=== PATIENT | female | born 1970 | race Caucasian/White ===

== ENCOUNTER 2020-02-19 17:04 | Inpatient (IN) ==
--- NOTE | 2020-02-19 17:44 | Emergency Department Note ---
Impression & Plan Small bowel obstruction, Abdominal pain, Leukocytosis ED Provider Note NAME: AUTUMN NAVAS AGE: 49 SEX: F : 1970 ARRIVES VIA: Walk-In INFORMANT: Patient, ED PROVIDER(S): Tan Ryder DO CHIEF COMPLAINT: Abdominal pain HPI: Patient is a 49-year-old female with a past medical history of hysterectomy with 1 ovary left the presents the ER for diffuse abdominal pain worse in the periumbilical region. She describes it as a cramping pain 6 out of 10 which waxes and wanes in intensity. She has bloating associated with it. Started 8 AM. She denies any dysuria urgency or frequency. No diarrhea. Patient denies any chest pain or shortness of breath. No dizziness lightheadedness. No other exacerbating or remitting factors. She notes that she was seen earlier today at [place] and had a CT abdomen pelvis which was unremarkable as well as blood work. ROS: See above HPI for pertinent positives & negatives. A total of 10 systems reviewed and were otherwise negative. PAST MEDICAL HISTORY:See Below PAST SURGICAL HISTORY:See Below FAMILY HISTORY:See Below SOCIAL HISTORY:See Below HOME MEDICATIONS:See Below ALLERGIES:See Below VITALS:See Below PHYSICAL EXAMINATION: GENERAL: Sitting up in bed, alert, well appearing, well nourished, no distress, non-toxic EYE EXAM: normal conjunctiva. PERRL and EOM's grossly intact. OROPHARYNX: no exudate, no erythema, lips, buccal mucosa, and tongue normal and mucous membranes are moist NECK: supple, no nuchal rigidity, no adenopathy, non-tender LUNGS: Clear to auscultation. Normal chest wall mechanics HEART: no murmurs, S1 normal and S2 normal ABDOMEN: abdomen soft, mild diffuse tenderness, normo-active bowel sounds, no masses, no rebound or guarding. BACK: Back is symmetrical on inspection and there is no deformity, no midline tenderness, no CVA tenderness. SKIN: no rashes and no bruising UPPER EXTREMITIES: upper extremities are grossly normal. LOWER EXTREMITIES: No pitting edema. NEURO EXAM: Normal sensorium, cranial nerves II-XII grossly intact, normal speech, no gross weakness of arms, no gross weakness of legs. MEDICAL DECISION MAKING: Patient is a 49-year-old female who presents the ER for diffuse abdominal pain which started earlier today. IV was established blood work was obtained. Labs show a leukocytosis of 12,000. No significant anemia. BMP was fairly unremarkable. LFTs bilirubin and lipase was negative. UA was unremarkable. 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 This was performed as case years CT showed an irregularity of the celiac artery. This was discussed with Dr. Jaxson Wilks. Recommended admission to the hospitalist and conservative treatment at this time. Patient was updated bedside. She was given IV fluids IV Zofran and IV narcotics. NG was not placed as she was not having any vomiting. She was updated bedside and will be admitted for further work-up. Triage Nursing notes reviewed. Prior medical records reviewed Vital Signs: reviewed and remarkable for hypertensive Differential diagnosis: Differential diagnoses includes but is not limited to gastritis, peptic ulcer disease, GERD, gallbladder disease, pancreatitis, small bowel obstruction, acute coronary syndrome, pericarditis, ischemic bowel, irritable bowel disease, ir ritable bowel syndrome, appendicitis, diverticulitis, malignancy, hernia, urinary tract infection, torsion, /ectopic (if female), perforation, trauma, infectious. ER treatment provided: See below Diagnostics interpreted by me: ECG: none Cardiac Monitoring: An order was placed for continuous cardiac monitoring. The monitor shows a rate of 61 with sinus rhythm. Laboratory studies: As stated above and show below. Imaging studies: As stated in the MDM Consultation(s): Discussed with Dr. Jaxson Wilks who recommended conservative treatment Discussed with Dr. Richard Oquendo for admission for hospitalist ED COURSE: Procedures: none Critical Care: None Past Med/Surg History Social History Feels Safe at Home: Yes Smoking Status: Current every day smoker Allergies Allergies Allergy/AdvReac Type Severity Reaction Status Date / Time No Known Allergies Allergy Verified 02/19/20 18:59 Home Meds Home Medications Medication Instructions Recorded Confirmed pantoprazole 40 mg PO DAILY 02/19/20 02/19/20 Results & Data (ED) Vital Signs Vital Signs - 24 hr 02/19/20 17:08 02/19/20 19:33 02/19/20 20:12 Temperature 36.9 C Temperature Source Oral Pulse Rate 83 Pulse Rate [Finger] 65 99 H Respiratory Rate 20 18 18 Respiratory Effort / Characteristics Non-Labored Spontaneous Respiratory Depth Normal Respiratory Pattern Regular Blood Pressure 148/89 H Blood Pressure [Right Arm] 146/96 H 131/90 Blood Pressure Mean 108 Blood Pressure Mean [Right Arm] 112 103 Blood Pressure Position Sitting Blood Pressure Position [Right Arm] Sitting Pulse Oximetry 97 96 95 Oxygen Delivery Method Room Air Room Air Room Air Sepsis Recent Fever Within 48 Hours No Sepsis New/Unexplained Change in Mental Status No Sepsis Action Taken by Nursing No Action Required 02/19/20 23:23 Temperature Temperature Source Pulse Rate Pulse Rate [Finger] 56 L Respiratory Rate 18 Respiratory Effort / Characteristics Respiratory Depth Respiratory Pattern Blood Pressure Blood Pressure [Right Arm] 159/87 H Blood Pressure Mean Blood Pressure Mean [Right Arm] 111 Blood Pressure Position Blood Pressure Position [Right Arm] Pulse Oximetry 94 Oxygen Delivery Method Room Air Sepsis Recent Fever Within 48 Hours Sepsis New/Unexplained Change in Mental Status Sepsis Action Taken by Nursing Laboratory Data Result diagrams: 02/19/20 18:26 02/19/20 18:26 Lab Results 02/19/20 02/19/20 02/19/20 Range/Units 18:26 18:26 18:38 WBC 12.43 H (4.8-10.8) K/uL RBC 5.06 (4.2-5.4) M/uL Hgb 15.1 (12.0-16.0) g/dL POC Hgb 15.0 (12.0-16.0) g/dl Hct 43.4 (37-47) % POC Hct 44 (37-47) % MCV 85.8 (80-100) fL MCH 29.8 (25-34) pg MCHC 34.8 (32-36) g/dL RDW Std Deviation 41.9 (36.4-46.3) fL RDW Coeff of Maday 13.5 (11.5-14.5) % Plt Count 244 (130-400) K/uL MPV 10.1 (7.4-10.4) fL Immature Gran % (Auto) 0.5 % Neut % (Auto) 91.4 % Lymph % (Auto) 6.8 % [place] % (Auto) 1.2 % Eos % (Auto) 0.0 % Baso % (Auto) 0.1 % Immature Gran # (Auto) 0.06 H (0.00-0.02) K/uL Neut # (Auto) 11.37 H (1.4-6.5) K/uL Lymph # (Auto) 0.84 L (1.2-3.4) K/uL [place] # (Auto) 0.15 (0.11-0.59) K/uL Eos # (Auto) 0.00 (0-0.5) K/uL Baso # (Auto) 0.01 (0-0.2) K/uL POC Sodium 142 (135-144) mmol/L Sodium 140 (136-145) mmol/L POC Potassium 3.5 (3.3-5.0) mmol/L Potassium 3.5 (3.5-5.1) mmol/L POC Chloride 109 (101-112) mmol/L Chloride 110 H (98-107) mmol/L Carbon Dioxide 22 (21-32) mmol/L POC Total CO2 22 L (24-31) mmol/L Anion Gap 8.0 (3-11) POC Anion Gap 16.0 (16-25) mmol/L POC BUN 12 (7-18) mg/dl BUN 12 (7-18) mg/dl Creatinine 0.64 (0.6-1.2) mg/dl POC Creatinine 0.5 L (0.6-1.3) mg/dl Est Cr Clr Drug Dosing 87.7 ml/min Est GFR ( Amer) 123.2 Est GFR (Non-Af Amer) 106.3 BUN/Creatinine Ratio 18.8 (10-20) Glucose 147 H (70-99) mg/dl POC Glucose (other) 155 H (70-99) mg/dl Calcium 8.8 (8.5-10.1) mg/dl POC Ioniz Calcium Lizette 1.13 (1.12-1.32) mmol/l Total Bilirubin 0.5 (0.2-1) mg/dl AST 30 (15-37) U/L ALT 41 (12-78) U/L Alkaline Phosphatase 81 (45-117) U/L Total Protein 7.4 (6.4-8.2) gm/dl Albumin 4.2 (3.4-5.0) gm/dl Globulin 3.2 (2.5-4.0) gm/dl Albumin/Globulin Ratio 1.3 (0.9-2) Lipase 71 L (73-393) U/L Urine Color Urine Appearance (Clear) Urine pH (4.5-7.5) Ur Specific Steen (1.000-1.030) Urine Protein (Negative) Urine Glucose (UA) (Negative) Urine Ketones (Negative) Urine Blood (Negative) Urine Nitrite (Negative) Urine Bilirubin (Negative) Urine Urobilinogen (Negative) Ur Leukocyte Esterase (Negative) Urine Test (Negative) 02/19/20 02/19/20 Range/Units 19:27 19:27 WBC (4.8-10.8) K/uL RBC (4.2-5.4) M/uL Hgb (12.0-16.0) g/dL POC Hgb (12.0-16.0) g/dl Hct (37-47) % POC Hct (37-47) % MCV (80-100) fL MCH (25-34) pg MCHC (32-36) g/dL RDW Std Deviation (36.4-46.3) fL RDW Coeff of Maday (11.5-14.5) % Plt Count (130-400) K/uL MPV (7.4-10.4) fL Immature Gran % (Auto) % Neut % (Auto) % Lymph % (Auto) % [place] % (Auto) % Eos % (Auto) % Baso % (Auto) % Immature Gran # (Auto) (0.00-0.02) K/uL Neut # (Auto) (1.4-6.5) K/uL Lymph # (Auto) (1.2-3.4) K/uL [place] # (Auto) (0.11-0.59) K/uL Eos # (Auto) (0-0.5) K/uL Baso # (Auto) (0-0.2) K/uL POC Sodium (135-144) mmol/L Sodium (136-145) mmol/L POC Potassium (3.3-5.0) mmol/L Potassium (3.5-5.1) mmol/L POC Chloride (101-112) mmol/L Chloride (98-107) mmol/L Carbon Dioxide (21-32) mmol/L POC Total CO2 (24-31) mmol/L Anion Gap (3-11) POC Anion Gap (16-25) mmol/L POC BUN (7-18) mg/dl BUN (7-18) mg/dl Creatinine (0.6-1.2) mg/dl POC Creatinine (0.6-1.3) mg/dl Est Cr Clr Drug Dosing ml/min Est GFR ( Amer) Est GFR (Non-Af Amer) BUN/Creatinine Ratio (10-20) Glucose (70-99) mg/dl POC Glucose (other) (70-99) mg/dl Calcium (8.5-10.1) mg/dl POC Ioniz Calcium Lizette (1.12-1.32) mmol/l Total Bilirubin (0.2-1) mg/dl AST (15-37) U/L ALT (12-78) U/L Alkaline Phosphatase (45-117) U/L Total Protein (6.4-8.2) gm/dl Albumin (3.4-5.0) gm/dl Globulin (2.5-4.0) gm/dl Albumin/Globulin Ratio (0.9-2) Lipase (73-393) U/L Urine Color Yellow Urine Appearance Clear (Clear) Urine pH 5.0 (4.5-7.5) Ur Specific Steen > 1.045 H (1.000-1.030) Urine Protein Negative (Negative) Urine Glucose (UA) Negative (Negative) Urine Ketones 3+ H (Negative) Urine Blood Negative (Negative) Urine Nitrite Negative (Negative) Urine Bilirubin Negative (Negative) Urine Urobilinogen Negative (Negative) Ur Leukocyte Esterase Negative (Negative) Urine Test Negative (Negative) Administered Medications Ioversol (Optiray 320 125ml) 118 ml IV ONCE PRN PRN Reason: Interaction Checking Stop: 02/23/20 19:58 Last Admin: 02/19/20 20:00 Dose: 118 ml Documented by: [id number] Discontinued Medications Sodium Chloride (Nss 1000ml) 2,000 mls @ 999 mls/hr IV .Q2H1M ONE Stop: 02/19/20 19:49 Last Infusion: 02/19/20 20:42 Dose: 0 mls/hr Documented by: [id number] Admin: 02/19/20 18:32 Dose: 999 mls/hr Documented by: [id number] Ketorolac Tromethamine (Toradol) 15 mg IV NOW ONE Stop: 02/19/20 17:50 Last Admin: 02/19/20 18:31 Dose: 15 mg Documented by: [id number] Ondansetron HCl (Zofran) 4 mg IV NOW STA Stop: 02/19/20 17:50 Last Admin: 02/19/20 18:32 Dose: 4 mg Documented by: [id number] Discharge Plan Visit Data Chief Complaint: Abdominal Pain Stated Complaint: ABD PAIN UPPER AND LOWER ED Provider: Tan Ryder Discharge Problem: Small bowel obstruction, Abdominal pain, Leukocytosis Discharge Instructions Interventions: ED Discharge Assessment Last Done: 02/19/20 23:18 Forms Stand Alone Forms: [facility] Prescriptions Prescriptions: No Action pantoprazole 40 mg tablet,delayed release (DR/EC) 40 mg PO DAILY RF: 0 Referrals Referrals: Marsha Guido M.D. [Primary Care Provider] - Discharge Problem: Abdominal pain Qualifiers: Abdominal location: unspecified location Qualified Code(s): R10.9 - Unspecified abdominal pain Leukocytosis Qualifiers: Leukocytosis type: unspecified Qualified Code(s): D72.829 - Elevated white blood cell count, unspecified
[2020-02-19] MEDS ORDERED: SODIUM CHLORIDE 0.9% 1000ML 2,000 ML IV ONE (17:49)
[2020-02-19] MEDS ORDERED: ONDANSETRON INJ 2 MG/ML 2 ML VIAL IV STA (17:49)
[2020-02-19] MEDS ORDERED: KETOROLAC TROMETHAMINE 15 MG/ML VIAL IV ONE (17:49)
[2020-02-19 18:39] LABS: Basophils # (auto) 0.01 K/uL (0-0.2); Basophils % (auto) 0.1 %; Hematocrit (blood only) 43.4 % (37-47); Hemoglobin 15.1 g/dL (12.0-16.0); Immature Granulocytes # (auto) 0.06 K/uL (0.00-0.02); Immature Granulocytes % (auto) 0.5 %; Lymphocytes # (auto) 0.84 K/uL (1.2-3.4); Lymphocytes % (auto) 6.8 %; Mean Corpuscular Hemoglobin 29.8 pg (25-34); Mean Corpuscular Hgb Conc 34.8 g/dL (32-36); Mean Corpuscular Volume 85.8 fL (80-100); Mean Platelet Volume 10.1 fL (7.4-10.4); Monocytes # (auto) 0.15 K/uL (0.11-0.59); Monocytes % (auto) 1.2 %; Neutrophils # (auto) 11.37 K/uL (1.4-6.5); Neutrophils % (auto) 91.4 %; Platelet Count 244 K/uL (130-400); RDW Coefficient of Variation 13.5 % (11.5-14.5); RDW Standard Deviation 41.9 fL (36.4-46.3); Red Blood Count 5.06 M/uL (4.2-5.4); White Blood Count 12.43 K/uL (4.8-10.8)
[2020-02-19 18:50] LABS: iSTAT Creatinine 0.5 mg/dl (0.6-1.3); iSTAT Ionized Calcium 1.13 mmol/l (1.12-1.32); iSTAT Potassium 3.5 mmol/L (3.3-5.0)
[2020-02-19 18:57] LABS: Albumin Level 4.2 gm/dl (3.4-5.0); BUN Creatinine Ratio 18.8 (10-20); Calcium 8.8 mg/dl (8.5-10.1); Creatinine Clr Calc Pharmacy 87.7 ml/min; Est GFR (African American) 123.2; Est GFR (Non-African American) 106.3; Potassium 3.5 mmol/L (3.5-5.1)
[2020-02-19 19:00] LABS: Albumin Globulin Ratio 1.3 (0.9-2); Bilirubin,Total 0.5 mg/dl (0.2-1); Globulin 3.2 gm/dl (2.5-4.0); Total Protein 7.4 gm/dl (6.4-8.2)
[2020-02-19 19:41] LABS: Appearance Urine Clear (Clear); Bilirubin Urine Negative (Negative); Blood Urine Negative (Negative); Color Urine Yellow; Glucose Urine UA Negative (Negative); Ketones Urine 3+ (Negative); Leukocyte Esterase Urine Negative (Negative); Nitrite Urine Negative (Negative); Protein Urine Negative (Negative); Specific Gravity Urine > 1.045 (1.000-1.030); Urobilinogen Urine Negative (Negative)
[2020-02-19 19:43] LABS: Pregnancy Test, Urine Negative (Negative)
[2020-02-19] MEDS ORDERED: OPTIRAY 320 125ml IV PRN (19:59)
--- NOTE | 2020-02-19 20:28 | CT Scan Report ---
CT angio abdomen pelvis w con CLINICAL HISTORY: 49 years-old Female with abdominal pain diffuse large celiac artery acute genera lized abdominal pain COMPARISON STUDY: None TECHNIQUE: Following the IV administration of 118 cc of Optiray 320, CT angiogram of the abdomen and pelvis was performed from the lung bases the proximal femora. Images are reviewed in the axial, sagit jerrod, and coronal planes. 3-D MIPS images are created and assessed. All measurements were obtained acc ording to NASCET criteria. IV contrast was administered without complication. A dose lowering techni que was utilized adhering to the principles of ALARA. CT DOSE: 367.40 mGy.cm FINDINGS: CTA: The imaged inferior cardiac chambers appear unremarkable. Reflux of contrast into the IVC and hepatic veins. The descending thoracic aorta and abdominal aorta appear unremarkable. There is no significan t atherosclerotic vascular disease identified. The common, internal and external iliac arteries appea r normal. There is high-grade stenosis at the origin of the celiac artery with poststenotic dilation (please see saved sagittal screen shot). The superior and inferior mesenteric arteries are patent and appear normal. The bilateral renal arteries also appear patent. Dual renal arterial supply to the le ft kidney. CT ABDOMEN/PELVIS: Mild bibasilar groundglass opacities suggest atelectasis. Mild nonspecific bibasilar bronchial wall t hickening. 4 mm solid nodule of the basal left lower lobe, image 19 series 3. No pneumatosis or pneum operitoneum. Spleen is mildly enlarged, 14 cm. Hepatic steatosis. Pancreas and adrenal glands are unr emarkable. Hyperdense material within the gallbladder lumen is suggestive of sludge, cholelithiasis o r vicarious excretion of contrast. No biliary ductal dilation. Normal appearance of the kidneys. No obstructive uropathy. Contrast-filled urinary bladder. No adenop athy. Sternotomy. No adnexal mass lesions. Fluid-filled distended stomach. There are several air and fluid-filled dilated loops of small bowel in the central and left lower quadrant abdomen which measur e up to 3.3 cm transversely. Mild interloop edema with trace free fluid extends into the dependent pe lvis. Mild wall thickening is noted involving a loop on image 220 series 3. There are a few loops of a nuclear compressed small bowel as noted on image 184 series 3 and also on image 240 series 3. Addit ionally, there is mild twisting of the mesentery within this region. The large bowel is unremarkable. Noninflamed appendix. Stool-filled terminal ileum. Soft tissues are unremarkable. Bones appear intact. IMPRESSION: 1. Dilated air and fluid-filled loops of small bowel within the left mid and lower abdomen are sugges tive of developing small bowel obstruction. There is mild twisting of the mesentery with a few loops of angular decompressed small bowel which raises the possibility of an internal hernia. Mild reactive interloop and dependent pelvic free fluid. 2. No pneumatosis or pneumoperitoneum. 3. 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 The remainder of the CTA is unremarkable. No evidence of significan t atherosclerotic vascular disease. 4. Hepatic steatosis. 5. Splenomegaly. ACT 112: Negative or not required by law. The above report was generated using voice recognition software. It may contain grammatical, syntax o r spelling errors. Electronically signed by: Rigoberto Bhatia M.D. 02/19/2020 8:27 PM
[2020-02-19] MEDS ORDERED: ZOLPIDEM TARTRATE 5 MG TAB PO PRN (22:23)
[2020-02-19] MEDS ORDERED: ONDANSETRON INJ 2 MG/ML 2 ML VIAL IV PRN ×2 (22:23→23:42)
--- NOTE | 2020-02-19 22:55 | History & Physical Report ---
Date of Service February 19, 2020 Assessment & Plan (1) Abdominal pain: Mrs. Anderson is a 49 yo F with a PMHx of GERD who presented to the ED with periumbilical pain and associated nausea, found to a small bowel obstruction on CTA imaging with concern for possible internal hernia formation and celiac trunk stenosis. - CTA of A/P showing evidence of SBO with twisting of mesenteric vessels, concerning for internal herniation of bowel and vasculature - general surgery consult placed - vascular surgery consult placed - treat SBO as below (2) Small bowel obstruction: - only risk factor for SBO includes previous hysterectomy - patient made NPO - continue IVF fluids at 125mls/hr - IV tylenol and morphine ordered for pain - IV zofran ordered for nausea - general surgery consulted (3) GERD (gastroesophageal reflux disease): - continue protonix 40mg, daily (4) Leukocytosis: - WBC elevated to 12 on admission - likely reactive to the above process (5) Stenosis of celiac artery: - visualized on CTA of abdomen and pelvis - it is unclear if this is contributing to present abdominal pain - vascular surgery consulted Dispo: Med/surg Diet: NPO DVT: bilateral SCDs Code: full History of Present Illness Primary Care Provider: Marsha Guido Mrs. Anderson is a 49 yo F with a PMHx of GERD who presented to the ED for progressive periumbilical abdominal pain that began this morning. Prior to the onset of this discomfort, she was in her usual state of health. She experienced associated abdominal bloating and nausea. She dry heaved but had no food in her stomach to bring up. Her appetite was diminished throughout the day, and she did not consume any food. It is difficult for her to gauge if the pain has migrated throughout her abdomen or has remained localized. She denies any diarrhea or urinary symptoms. Mrs. Anderson states that she has never experienced this kind of discomfort in the past. She cannot recall a trigger or inciting event that brought the abdominal pain on. Her past medical history consists only of GERD for which she takes protonix 40mg, daily. She has no history of radiation therapy to the abdomen or inflammatory bowel disorder. Her past surgical history is significant only for a hysterectomy and unilateral oophorectomy. ED course: WBC mildly elevated to 12.4. CMP otherwise WNL. Lipase normal at 71. Urine preg negative. UA unremarkable. CT angiogram of abdomen and pelvis showed dilated loops of bowel with air fluid levels concerning for a small bowel obstruction. There was also mild twisting of the mesentery with a few loops of angular decompressed small bowel which raises the possibility of an internal hernia. High grade stenosis of the celiac trunk noted. Mild splenomegaly and hepatic steatosis also present. Patient was made NPO, started on IV fluids, and given a dose of Toradol and Zofran. Allergies Allergy/AdvReac Type Severity Reaction Status Date / Time No Known Allergies Allergy Verified 02/19/20 18:59 Home Medications Home Medications Medication Instructions Recorded Confirmed Type pantoprazole 40 mg PO DAILY 02/19/20 02/19/20 History Past Med/Surg History Medical History (Updated 02/20/20 @ 11:42 by MEEK Sage) Celiac artery compression syndrome Surgical History (Updated 02/20/20 @ 10:26 by Jaxson Wilks MD) H/O hysterectomy with unilateral oophorectomy S/P tonsillectomy and adenoidectomy Social History Preferred Language: Japanese Communication Ability: Effective Process Maintenance Technician Required: No Beliefs That Will Affect Care: None Current Living Situation: Family Other Information That Helps Us Care for You: No Feels Safe at Home: Yes Safety Concerns: Feels Safe At This Time Smoking Status: Current every day smoker Tobacco Type: cigarettes ; Cigarettes Per Day: 20 ; Do You Dip or Chew Tobacco: No ; Second Hand Exposure: Yes ; Tobacco Cessation Education Requested by Patient: No Hx Alcohol Use: No Hx Substance Use: No Review of Systems Gastrointestinal: + abdominal pain, + bloating, + nausea and + vomiting; no diarrhea/loose stools Genitourinary: no dysuria Physical Exam Constitutional: WD/WN, vitals as above cooperative + drowsy Eyes: + anicteric sclerae ENMT: external ear and nose normal, oropharynx normal Neck: normal visual inspection and trachea midline Respiratory: normal respiratory effort, lungs clear to auscultation Cardiovascular: RRR, no murmur, no edema Heart Sounds: normal S1 and normal S2 Extremities: no pedal edema Gastrointestinal (Abdomen): Inspection/Auscultation: + abdomen distended and normal bowel sounds Percussion/Palpation: + abdomen tender (diffusely ) and abdomen soft; no guarding and no hepatosplenomegaly No rebound tenderness Skin: no rashes, warm and dry Psychiatric: A+Ox3, euthymic affect Results & Data Results & Data ([facility]) Vital Signs (Past 12 Hours) Vital Signs Temp Pulse Pulse Resp BP BP Pulse Ox 02/19/20 20:12 99 H 18 131/90 95 02/19/20 19:33 65 18 146/96 H 96 02/19/20 17:08 36.9 C 83 20 148/89 H 97 Supervising Physician Co-Signing Physician Notes Attending addendum: I have physically seen this patient, have supervised the medical residents activities, and agree with the H&P unless as otherwise noted. Assessment and Plan: Small bowel obstruction/question of internal hernia/high-grade stenosis of origin of celiac trunk- N.p.o. NSS on 125 mils per hour Acetaminophen 1 g IV every 8 hours PRN mild pain or temperature. Morphine IV as needed severe pain Zofran 4 mg IV every 6hr as needed Famotidine 20 mg IV every 12 hours. Zosyn 4.5 g IV every [address] hours. Consult general surgery Dr. Wilks. Consult vascular surgery Dr. Pathak. Serial CBC with differential, chemistry profile and magnesium level. Remainder of orders and notations as noted. Resident Activity Tracking Resident Involvement: Resident Care Provided Care Provided: Adult Hospital Medicine (1) Leukocytosis Leukocytosis type: unspecified Qualified Code(s): D72.829 - Elevated white b lood cell count, unspecified (2) Abdominal pain Abdominal location: unspecified location Qualified Code(s): R10.9 - Unspecified abdominal pain
[2020-02-19] MEDS ORDERED: MoRPHine SULFATE 2 MG/ML CARP IV PRN (23:42)
[2020-02-19] MEDS ORDERED: ACETAMINOPHEN 1000 MG/100 ML IV IV PRN (23:42)
[2020-02-20] MEDS: SODIUM CHLORIDE 0.9% 1000ML 1,000 ML IV SCH ×2 (01:13→10:23)
--- NOTE | 2020-02-20 08:41 | Hospitalist Progress Note ---
Date of Service February 20, 2020 Assessment & Plan (1) Abdominal pain: Mrs. Anderson is a 49 yo F with a PMHx of GERD who presented to the ED with periumbilical pain and associated nausea, found to a small bowel obstruction on CTA imaging with concern for possible internal hernia formation and celiac trunk stenosis. Improving - CTA of A/P showing evidence of SBO with twisting of mesenteric vessels, concerning for internal herniation of bowel and vasculature - general surgery consulted - vascular surgery consulted - treat SBO as below (2) Small bowel obstruction: - only risk factor for SBO includes previous hysterectomy - No s/s of perforation on KUB this morning. 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 Anderson is feeling better this morning. She is not nauseas or vomiting. She has some abdominal tenderness but better than yesterday. She denies other complaints. ROS Constitutional: no chills, aches, sweats or fever Respiratory: no sob,cough, sputum, or wheezing Cardiac: no chest pain, palpitations, edema, orthopnea or lightheadedness GI: no nausea, vomiting, diarrhea or constipation : no dysuria or hesitancy Extremities: no joint pain or weakness Skin: no rash All other systems reviewed and negative Physical Exam Physical Exam: General: no distress Eyes: normal inspection, PERLL Respiratory: chest non tender, clear to auscultation, normal breath sounds, no respiratory distress, no accessory muscle use Cardiac: regular rate and rhythm, no rub or gallop, no murmur, no edema, no jvd GI/: active bowel sounds, diffuse abdominal tenderness to palpation, soft, non distended Extremities: normal range of motion, normal strength, non tender Neuro/Psych: alert and oriented x 3, normal mood and affect Skin: normal color, dry Results & Data Results & Data ([facility]) Vital Signs (Past 12 Hours) Vital Signs Temp Pulse Resp BP Pulse Ox 02/20/20 07:09 36.7 C 84 16 125/77 95 02/19/20 23:45 36.7 C 69 16 142/79 H 94 02/19/20 23:23 56 L 18 159/87 H 94 PG Care Time/CCT Total # of Minutes Spent Total Time Spent with Patient: Total time spent is greater than 50% in coordination of care (as documented) at patient's floor/unit and/or counseling patient: Coding Level of Care Code 18780 Subseq Hosp Care Lvl 3 Diagnoses Abdominal pain R10.9 Abdominal location: unspecified location Small bowel obstruction K56.609 GERD (gastroesophageal reflux disease) K21.9 Leukocytosis D72.829 Leukocytosis type: unspecified Stenosis of celiac artery I77.4 Hepatic steatosis K76.0 Splenomegaly R16.1 Hypokalemia E87.6 DVT prophylaxis Z29.9 (1) Leukocytosis Leukocytosis type: unspecified Qualified Code(s): D72.829 - Elevated white blood cell count, unspecified (2) Abdominal pain Abdominal location: unspecified location Qualified Code(s): R10.9 - Unspecified abdominal pain
[2020-02-20 08:46] LABS: Basophils # (auto) 0.01 K/uL (0-0.2); Basophils % (auto) 0.1 %; Eosinophils # (auto) 0.02 K/uL (0-0.5); Eosinophils % (auto) 0.2 %; Hematocrit (blood only) 38.6 % (37-47); Hemoglobin 13.3 g/dL (12.0-16.0); Immature Granulocytes # (auto) 0.05 K/uL (0.00-0.02); Immature Granulocytes % (auto) 0.4 %; Lymphocytes # (auto) 1.96 K/uL (1.2-3.4); Mean Corpuscular Hemoglobin 30.5 pg (25-34); Mean Corpuscular Hgb Conc 34.5 g/dL (32-36); Mean Corpuscular Volume 88.5 fL (80-100); Mean Platelet Volume 10.1 fL (7.4-10.4); Monocytes # (auto) 0.58 K/uL (0.11-0.59); Monocytes % (auto) 4.4 %; Neutrophils # (auto) 10.49 K/uL (1.4-6.5); Neutrophils % (auto) 79.9 %; Platelet Count 245 K/uL (130-400); RDW Coefficient of Variation 13.7 % (11.5-14.5); RDW Standard Deviation 43.9 fL (36.4-46.3); Red Blood Count 4.36 M/uL (4.2-5.4); White Blood Count 13.11 K/uL (4.8-10.8)
[2020-02-20 08:48] LABS: pH VBG 7.44 (7.36-7.41)
[2020-02-20] MEDS ORDERED: PANTOprazole 40 MG TAB PO SCH (09:00)
[2020-02-20 09:14] LABS: Albumin Level 3.5 gm/dl (3.4-5.0); BUN Creatinine Ratio 14.7 (10-20); Calcium 8.1 mg/dl (8.5-10.1); Creatinine Clr Calc Pharmacy 105.9 ml/min; Est GFR (African American) 130.2; Est GFR (Non-African American) 112.4; Potassium 3.1 mmol/L (3.5-5.1)
--- NOTE | 2020-02-20 09:14 | XRay Report ---
XR KUB/Abdomen 1 view CLINICAL HISTORY: SBO COMPARISON STUDY: CT scan dated 02/19/2020 FINDINGS: The study is performed in a portable supine fashion. There is contrast in the bladder secon emmett to a prior CT scan. There are borderline dilated small bowel loops. Gas is present within the co keo. IMPRESSION: Nonspecific bowel gas pattern with borderline dilated small bowel loops. ACT 112: Negative or not required by law. Electronically signed by: Mundo Lombardi M.D. 02/20/2020 9:13 AM
[2020-02-20 09:17] LABS: Albumin Globulin Ratio 1.2 (0.9-2); Bilirubin,Total 0.5 mg/dl (0.2-1); Globulin 2.8 gm/dl (2.5-4.0); Total Protein 6.4 gm/dl (6.4-8.2)
[2020-02-20] MEDS ORDERED: POTASSIUM CHLORIDE 40 MEQ in SODIUM CHLORIDE 0.9% 1000ML 1,000 ML IV SCH (09:30)
--- NOTE | 2020-02-20 10:11 | Consultation ---
Date of Consultation February 20, 2020 Assessment & Plan (1) Celiac artery compression syndrome: Pt appears to have some mild compression of celiac artery on CTA, from which she is asymptomatic. Sx consistent with SBO which is also noted on CTA. No indications for vascular surgical intervention at this time. Please call if needed. Present on Admission?: Yes History of Present Illness Reason for Consultation: celiac artery compression Attending Physician: Mike Cartagena MD History of Present Illness 49 yo f with hx of GERD and hysterectomy, admitted with SBO and seen in consultation today for incidental finding of celiac artery compression on CTA. Pt denies any prior knowledge of this or other vascular problems. Denies hx of post prandial pain or appetite changes or significant unwanted weight loss. Did not have appetite for 1 day prior to admission. Admits abd pain and N/V over past 1-2 days [employer]. Denies PERRY, fever, chills, chest pain, SOB, rest pain, claudication, other complaints. States abd pain improved significantly today and is feeling hungry. CTA abd/pelvis demonstrated dilated bowel loops consistent with early SBO, as well as mild celiac art compression. No significant atherosclerotic plaque noted. Allergies Allergy/AdvReac Type Severity Reaction Status Date / Time No Known Allergies Allergy Verified 02/19/20 18:59 Home Medications Home Medications Medication Instructions Recorded Confirmed Type pantoprazole 40 mg PO DAILY 02/19/20 02/19/20 History Patient History Social History Preferred Language: Faroese Communication Ability: Effective Channel Opener Required: No Beliefs That Will Affect Care: None Current Living Situation: Family Other Information That Helps Us Care for You: No Feels Safe at Home: Yes Safety Concerns: Feels Safe At This Time Smoking Status: Current every day smoker Tobacco Type: cigarettes ; Cigarettes Per Day: 20 ; Do You Dip or Chew Tobacco: No ; Second Hand Exposure: Yes ; Tobacco Cessation Education Requested by Patient: No Hx Alcohol Use: No Hx Substance Use: No Review of Systems Review of Systems: All systems reviewed & are unremarkable except as noted in HPI & below Physical Exam Constitutional: WD/WN, vitals as above + obese, healthy appearing, cooperative and comfortable; not in distress Eyes: PERRL, conjunctivae normal, anicteric sclerae ENMT: external ear and nose normal, oropharynx normal Ears: no hearing impairment Neck: trachea midline, no thyromegaly Respiratory: normal respiratory effort, lungs clear to auscultation Cardiovascular: RRR, no murmur, no edema Vessels: normal peripheral pulses, femoral pulses present, posterior tibial pulses present, dorsalis pedis pulses present, brachial pulses present and radial pulses present; no carotid bruit Extremities: normal capillary refill; no edema Gastrointestinal (Abdomen): Inspection/Auscultation: + abdomen distended (mildly) Percussion/Palpation: + abdomen tender and + guarding Musculoskeletal: no cyanosis or clubbing, extremities motor strength 5/5 Skin: no rashes, warm and dry Neurologic: moves all extremities and awake; no focal motor deficits and not confused Psychiatric: A+Ox3, euthymic affect Results & Data Vital Signs (Past 12 Hours) Vital Signs Temp Pulse Resp BP Pulse Ox 02/20/20 07:09 36.7 C 84 16 125/77 95 02/19/20 23:45 36.7 C 69 16 142/79 H 94 02/19/20 23:23 56 L 18 159/87 H 94
[2020-02-20] MEDS: PANTOprazole 40 MG in SYRINGE 0 ML IV SCH (10:23)
--- NOTE | 2020-02-20 10:28 | Surgery Consultation ---
Date of Consultation February 20, 2020 Assessment & Plan (1) Small bowel obstruction: Patient feels better today. There is still some mild tenderness. KUB appears improved with a nonspecific bowel gas pattern and air in the colon. No longer has nausea or vomiting. Has begun to pass a small amount of flatus. We will continue to monitor conservatively. There is no evidence of peritonitis. Do not think that surgical intervention is immediately indicated especially considering the fact that things seem to be improving. Lactate is normal. We will continue to follow. History of Present Illness Requesting Physician: Mike Cartagena MD Attending Physician: Mike Cartagena MD History of Present Illness I have been asked by Dr. Cartagena to see this 49-year-old female who presented to the emergency room last evening with a complaint of abdominal pain. She states that earlier in the day she began to develop discomfort in her belly that she described as a squeezing crampy sensation. It then progressed to become more intense with more sharp character. She had no previous symptoms similar to this. There was no one part of her abdomen where the pain predominated. It was associated with nausea and vomiting. She had a small bowel movement yesterday. There was no melena or hematochezia. She had no fever or chills. She had no dysuria or hematuria. Overnight the discomfort has decreased significantly. She no longer has nausea. She has passed a small amount of flatus. 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 Beliefs That Will Affect Care: None Current Living Situation: Family Other Information That Helps Us Care for You: No Feels Safe at Home: Yes Safety Concerns: Feels Safe At This Time Smoking Status: Current every day smoker Tobacco Type: cigarettes ; Cigarettes Per Day: 20 ; Do You Dip or Chew Tobacco: No ; Second Hand Exposure: Yes ; Tobacco Cessation Education Requested by Patient: No Hx Alcohol Use: No Hx Substance Use: No Review of Systems Review of Systems: All systems reviewed & are unremarkable except as noted in HPI & below Physical Exam Constitutional: no acute distress Neck: trachea midline Respiratory: normal respiratory effort, lungs clear to auscultation Cardiovascular: Rate/Rhythm: regular rate and regular rhythm Gastrointestinal (Abdomen): Inspection/Auscultation: normal bowel sounds; abdomen not distended Percussion/Palpation: + abdomen tender (Above and to the left of the umbilicus) and abdomen soft Skin: no rashes, warm and dry Lymphatic: no cervical lymphadenopathy Results & Data Vital Signs (Past 12 Hours) Vital Signs Temp Pulse Resp BP Pulse Ox 02/20/20 07:09 36.7 C 84 16 125/77 95 02/19/20 23:45 36.7 C 69 16 142/79 H 94 02/19/20 23:23 56 L 18 159/87 H 94 Laboratory Results 02/20/20 02/20/20 02/20/20 Range/Units 08:38 08:38 08:27 WBC (4.8-10.8) K/uL RBC (4.2-5.4) M/uL Hgb (12.0-16.0) g/dL POC Hgb (12.0-16.0) g/dl Hct (37-47) % POC Hct (37-47) % MCV (80-100) fL MCH (25-34) pg MCHC (32-36) g/dL RDW Std Deviation (36.4-46.3) fL RDW Coeff of Maday (11.5-14.5) % Plt Count (130-400) K/uL MPV (7.4-10.4) fL Immature Gran % (Auto) % Neut % (Auto) % Lymph % (Auto) % [place] % (Auto) % Eos % (Auto) % Baso % (Auto) % Immature Gran # (Auto) (0.00-0.02) K/uL Neut # (Auto) (1.4-6.5) K/uL Lymph # (Auto) (1.2-3.4) K/uL [place] # (Auto) (0.11-0.59) K/uL Eos # (Auto) (0-0.5) K/uL Baso # (Auto) (0-0.2) K/uL VBG pH 7.44 H (7.36-7.41) VBG pCO2 34 L (38-50) mmHg VBG pO2 53 mmHg VBG HCO3 22 mmol/L VBG O2 Saturation 88.0 % VBG Base Excess -1.0 mEq/L Barometric Pressure 731.5 mm/Hg POC Sodium (135-144) mmol/L Sodium 140 (136-145) mmol/L POC Potassium (3.3-5.0) mmol/L Potassium 3.1 L (3.5-5.1) mmol/L POC Chloride (101-112) mmol/L Chloride 111 H (98-107) mmol/L Carbon Dioxide 22 (21-32) mmol/L POC Total CO2 (24-31) mmol/L Anion Gap 7.0 (3-11) POC Anion Gap (16-25) mmol/L POC BUN (7-18) mg/dl BUN 8 (7-18) mg/dl Creatinine 0.54 L (0.6-1.2) mg/dl POC Creatinine (0.6-1.3) mg/dl Est Cr Clr Drug Dosing 105.9 ml/min Est GFR ( Amer) 130.2 Est GFR (Non-Af Amer) 112.4 BUN/Creatinine Ratio 14.7 (10-20) Glucose 113 H (70-99) mg/dl POC Glucose (other) (70-99) mg/dl Lactate 0.7 (0.4-2.0) mmol/L Calcium 8.1 L (8.5-10.1) mg/dl POC Ioniz Calcium Lizette (1.12-1.32) mmol/l Total Bilirubin 0.5 (0.2-1) mg/dl AST 23 (15-37) U/L ALT 36 (12-78) U/L Alkaline Phosphatase 66 (45-117) U/L Total Protein 6.4 (6.4-8.2) gm/dl Albumin 3.5 (3.4-5.0) gm/dl Globulin 2.8 (2.5-4.0) gm/dl Albumin/Globulin Ratio 1.2 (0.9-2) Lipase (73-393) U/L Urine Color Urine Appearance (Clear) Urine pH (4.5-7.5) Ur Specific Humble (1.000-1.030) Urine Protein (Negative) Urine Glucose (UA) (Negative) Urine Ketones (Negative) Urine Blood (Negative) Urine Nitrite (Negative) Urine Bilirubin (Negative) Urine Urobilinogen (Negative) Ur Leukocyte Esterase (Negative) Urine Test (Negative) 02/20/20 02/19/20 02/19/20 Range/Units 08:27 19:27 19:27 WBC 13.11 H (4.8-10.8) K/uL RBC 4.36 (4.2-5.4) M/uL Hgb 13.3 (12.0-16.0) g/dL POC Hgb (12.0-16.0) g/dl Hct 38.6 (37-47) % POC Hct (37-47) % MCV 88.5 (80-100) fL MCH 30.5 (25-34) pg MCHC 34.5 (32-36) g/dL RDW Std Deviation 43.9 (36.4-46.3) fL RDW Coeff of Maday 13.7 (11.5-14.5) % Plt Count 245 (130-400) K/uL MPV 10.1 (7.4-10.4) fL Immature Gran % (Auto) 0.4 % Neut % (Auto) 79.9 % Lymph % (Auto) 15.0 % [place] % (Auto) 4.4 % Eos % (Auto) 0.2 % Baso % (Auto) 0.1 % Immature Gran # (Auto) 0.05 H (0.00-0.02) K/uL Neut # (Auto) 10.49 H (1.4-6.5) K/uL Lymph # (Auto) 1.96 (1.2-3.4) K/uL [place] # (Auto) 0.58 (0.11-0.59) K/uL Eos # (Auto) 0.02 (0-0.5) K/uL Baso # (Auto) 0.01 (0-0.2) K/uL VBG pH (7.36-7.41) VBG pCO2 (38-50) mmHg VBG pO2 mmHg VBG HCO3 mmol/L VBG O2 Saturation % VBG Base Excess mEq/L Barometric Pressure mm/Hg POC Sodium (135-144) mmol/L Sodium (136-145) mmol/L POC Potassium (3.3-5.0) mmol/L Potassium (3.5-5.1) mmol/L POC Chloride (101-112) mmol/L Chloride (98-107) mmol/L Carbon Dioxide (21-32) mmol/L POC Total CO2 (24-31) mmol/L Anion Gap (3-11) POC Anion Gap (16-25) mmol/L POC BUN (7-18) mg/dl BUN (7-18) mg/dl Creatinine (0.6-1.2) mg/dl POC Creatinine (0.6-1.3) mg/dl Est Cr Clr Drug Dosing ml/min Est GFR ( Amer) Est GFR (Non-Af Amer) BUN/Creatinine Ratio (10-20) Glucose (70-99) mg/dl POC Glucose (other) (70-99) mg/dl Lactate (0.4-2.0) mmol/L Calcium (8.5-10.1) mg/dl POC Ioniz Calcium Lizette (1.12-1.32) mmol/l Total Bilirubin (0.2-1) mg/dl AST (15-37) U/L ALT (12-78) U/L Alkaline Phosphatase (45-117) U/L Total Protein (6.4-8.2) gm/dl Albumin (3.4-5.0) gm/dl Globulin (2.5-4.0) gm/dl Albumin/Globulin Ratio (0.9-2) Lipase (73-393) U/L Urine Color Yellow Urine Appearance Clear (Clear) Urine pH 5.0 (4.5-7.5) Ur Specific Humble > 1.045 H (1.000-1.030) Urine Protein Negative (Negative) Urine Glucose (UA) Negative (Negative) Urine Ketones 3+ H (Negative) Urine Blood Negative (Negative) Urine Nitrite Negative (Negative) Urine Bilirubin Negative (Negative) Urine Urobilinogen Negative (Negative) Ur Leukocyte Esterase Negative (Negative) Urine Test Negative (Negative) 02/19/20 02/19/20 02/19/20 Range/Units 18:38 18:26 18:26 WBC 12.43 H (4.8-10.8) K/uL RBC 5.06 (4.2-5.4) M/uL Hgb 15.1 (12.0-16.0) g/dL POC Hgb 15.0 (12.0-16.0) g/dl Hct 43.4 (37-47) % POC Hct 44 (37-47) % MCV 85.8 (80-100) fL MCH 29.8 (25-34) pg MCHC 34.8 (32-36) g/dL RDW Std Deviation 41.9 (36.4-46.3) fL RDW Coeff of Maday 13.5 (11.5-14.5) % Plt Count 244 (130-400) K/uL MPV 10.1 (7.4-10.4) fL Immature Gran % (Auto) 0.5 % Neut % (Auto) 91.4 % Lymph % (Auto) 6.8 % [place] % (Auto) 1.2 % Eos % (Auto) 0.0 % Baso % (Auto) 0.1 % Immature Gran # (Auto) 0.06 H (0.00-0.02) K/uL Neut # (Auto) 11.37 H (1.4-6.5) K/uL Lymph # (Auto) 0.84 L (1.2-3.4) K/uL [place] # (Auto) 0.15 (0.11-0.59) K/uL Eos # (Auto) 0.00 (0-0.5) K/uL Baso # (Auto) 0.01 (0-0.2) K/uL VBG pH (7.36-7.41) VBG pCO2 (38-50) mmHg VBG pO2 mmHg VBG HCO3 mmol/L VBG O2 Saturation % VBG Base Excess mEq/L Barometric Pressure mm/Hg POC Sodium 142 (135-144) mmol/L Sodium 140 (136-145) mmol/L POC Potassium 3.5 (3.3-5.0) mmol/L Potassium 3.5 (3.5-5.1) mmol/L POC Chloride 109 (101-112) mmol/L Chloride 110 H (98-107) mmol/L Carbon Dioxide 22 (21-32) mmol/L POC Total CO2 22 L (24-31) mmol/L Anion Gap 8.0 (3-11) POC Anion Gap 16.0 (16-25) mmol/L POC BUN 12 (7-18) mg/dl BUN 12 (7-18) mg/dl Creatinine 0.64 (0.6-1.2) mg/dl POC Creatinine 0.5 L (0.6-1.3) mg/dl Est Cr Clr Drug Dosing 87.7 ml/min Est GFR ( Amer) 123.2 Est GFR (Non-Af Amer) 106.3 BUN/Creatinine Ratio 18.8 (10-20) Glucose 147 H (70-99) mg/dl POC Glucose (other) 155 H (70-99) mg/dl Lactate (0.4-2.0) mmol/L Calcium 8.8 (8.5-10.1) mg/dl POC Ioniz Calcium Lizette 1.13 (1.12-1.32) mmol/l Total Bilirubin 0.5 (0.2-1) mg/dl AST 30 (15-37) U/L ALT 41 (12-78) U/L Alkaline Phosphatase 81 (45-117) U/L Total Protein 7.4 (6.4-8.2) gm/dl Albumin 4.2 (3.4-5.0) gm/dl Globulin 3.2 (2.5-4.0) gm/dl Albumin/Globulin Ratio 1.3 (0.9-2) Lipase 71 L (73-393) U/L Urine Color Urine Appearance (Clear) Urine pH (4.5-7.5) Ur Specific Humble (1.000-1.030) Urine Protein (Negative) Urine Glucose (UA) (Negative) Urine Ketones (Negative) Urine Blood (Negative) Urine Nitrite (Negative) Urine Bilirubin (Negative) Urine Urobilinogen (Negative) Ur Leukocyte Esterase (Negative) Urine Test (Negative) Diagnostic Findings CT angio abdomen pelvis w con CLINICAL HISTORY: 49 years-old Female with abdominal pain diffuse large celiac artery acute generalized abdominal pain COMPARISON STUDY: None TECHNIQUE: Following the IV administration of 118 cc of Optiray 320, CT angiogram of the abdomen and pelvis was performed from the lung bases the proximal femora. Images are reviewed in the axial, sagittal, and coronal planes. 3-D MIPS images are created and assessed. All measurements were obtained according to NASCET criteria. IV contrast was administered without complication. A dose lowering technique was utilized adhering to the principles of ALARA. CT DOSE: 367.40 mGy.cm FINDINGS: CTA: The imaged inferior cardiac chambers appear unremarkable. Reflux of contrast into the IVC and hepatic veins. The descending thoracic aorta and abdominal aorta appear unremarkable. There is no significant atherosclerotic vascular disease identified. The common, internal and external iliac arteries appear normal. There is high-grade stenosis at the origin of the celiac artery with poststenotic dilation (please see saved sagittal screen shot). The superior and inferior mesenteric arteries are patent and appear normal. The bilateral renal arteries also appear patent. Dual renal arterial supply to the left kidney. CT ABDOMEN/PELVIS: Mild bibasilar groundglass opacities suggest atelectasis. Mild nonspecific bibasilar bronchial wall thickening. 4 mm solid nodule of the basal left lower lobe, image 19 series 3. No pneumatosis or pneumoperitoneum. Spleen is mildly enlarged, 14 cm. Hepatic steatosis. Pancreas and adrenal glands are unremarkable. Hyperdense material within the gallbladder lumen is suggestive of sludge, cholelithiasis or vicarious excretion of contrast. No biliary ductal dilation. Normal appearance of the kidneys. No obstructive uropathy. Contrast-filled urinary bladder. No adenopathy. Sternotomy. No adnexal mass lesions. Fluid- filled distended stomach. There are several air and fluid-filled dilated loops of small bowel in the central and left lower quadrant abdomen which measure up to 3.3 cm transversely. Mild interloop edema with trace free fluid extends into the dependent pelvis. Mild wall thickening is noted involving a loop on image 220 series 3. There are a few loops of a nuclear compressed small bowel as noted on image 184 series 3 and also on image 240 series 3. Additionally, there is mild twisting of the mesentery within this region. The large bowel is unremarkable. Noninflamed appendix. Stool-filled terminal ileum. Soft tissues are unremarkable. Bones appear intact. IMPRESSION: 1. Dilated air and fluid-filled loops of small bowel within the left mid and lower abdomen are suggestive of developing small bowel obstruction. There is mild twisting of the mesentery with a few loops of angular decompressed small bowel which raises the possibility of an internal hernia. Mild reactive interloop and dependent pelvic free fluid. 2. No pneumatosis or pneumoperitoneum. 3. High-grade stenosis at the origin of the celiac trunk with poststenotic dilat ion is suggestive of median arcuate ligament syndrome. The remainder of the CTA is unremarkable. No evidence of significant atherosclerotic vascular disease. 4. Hepatic steatosis. 5. Splenomegaly. XR KUB/Abdomen 1 view CLINICAL HISTORY: SBO COMPARISON STUDY: CT scan dated 02/19/2020 FINDINGS: The study is performed in a portable supine fashion. There is contrast in the bladder secondary to a prior CT scan. There are borderline dilated small bowel loops. Gas is present within the colon. IMPRESSION: Nonspecific bowel gas pattern with borderline dilated small bowel loops.
--- NOTE | 2020-02-20 15:37 | Surgery Progress Note ---
Date of Service February 20, 2020 Assessment & Plan (1) Small bowel obstruction: She had a bowel movement. She did vomit a small amount but she has no nausea now. She is resting comfortably. I would continue to manage conservatively for today and reevaluate tomorrow. There is no evidence of p eritonitis. There are signs that this is resolving. Subjective This is a second evaluation today. She had 2 small emesis but also had a bowel movement and has passed more flatus. Her abdominal pain has decreased Physical Exam Gastrointestinal (Abdomen): Inspection/Auscultation: normal bowel sounds; abdomen not distended Percussion/Palpation: + abdomen tender (Even less tender than this morning) Results & Data Vital Signs (Past 12 Hours) Vital Signs Temp Pulse Resp BP Pulse Ox 02/20/20 15:13 37.0 C 80 17 113/70 94 02/20/20 07:09 36.7 C 84 16 125/77 95
[2020-02-20] MEDS: NSS + 20MEQ KCL 20 MEQ/1,000 ML BAG IV SCH (17:30)
[2020-02-20] MEDS ORDERED: FAMOTIDINE 20 MG in SYRINGE 3 ML IV SCH (21:00)
[2020-02-21] MEDS: NSS + 20MEQ KCL 20 MEQ/1,000 ML BAG IV SCH ×2 (01:28→09:41)
--- NOTE | 2020-02-21 05:22 | Billing Data ---
Date of Service February 21, 2020 Coding Level of Care Code 02413 Initial Inpt Care Lvl 2
[2020-02-21 06:22] LABS: Basophils # (auto) 0.01 K/uL (0-0.2); Basophils % (auto) 0.1 %; Eosinophils # (auto) 0.13 K/uL (0-0.5); Eosinophils % (auto) 1.7 %; Hematocrit (blood only) 37.1 % (37-47); Hemoglobin 12.7 g/dL (12.0-16.0); Immature Granulocytes # (auto) 0.07 K/uL (0.00-0.02); Immature Granulocytes % (auto) 0.9 %; Lymphocytes # (auto) 2.11 K/uL (1.2-3.4); Lymphocytes % (auto) 27.9 %; Mean Corpuscular Hemoglobin 30.2 pg (25-34); Mean Corpuscular Hgb Conc 34.2 g/dL (32-36); Mean Corpuscular Volume 88.1 fL (80-100); Mean Platelet Volume 10.1 fL (7.4-10.4); Monocytes # (auto) 0.55 K/uL (0.11-0.59); Monocytes % (auto) 7.3 %; Neutrophils # (auto) 4.69 K/uL (1.4-6.5); Neutrophils % (auto) 62.1 %; Platelet Count 201 K/uL (130-400); RDW Coefficient of Variation 13.6 % (11.5-14.5); RDW Standard Deviation 43.7 fL (36.4-46.3); Red Blood Count 4.21 M/uL (4.2-5.4); White Blood Count 7.56 K/uL (4.8-10.8)
[2020-02-21 06:53] LABS: BUN Creatinine Ratio 15.9 (10-20); Creatinine Clr Calc Pharmacy 114.4 ml/min; Est GFR (African American) 133.6; Est GFR (Non-African American) 115.3; Potassium 3.9 mmol/L (3.5-5.1)
[2020-02-21] MEDS: PANTOprazole 40 MG in SYRINGE 0 ML IV SCH (09:41)
--- NOTE | 2020-02-21 10:31 | Surgery Progress Note ---
Date of Service February 21, 2020 Assessment & Plan (1) Small bowel obstruction: Resolved leukocytosis resolved + return of bowel function abdominal pain resolved no n/v today Abdominal exam benign Plan: Okay to advance diet to clears if tolerates well can be discharged from surgical standpoint continue medical management Dr. Wilks has seen and examined pt, agrees with above. Supervising Physician Co-Signing Physician Notes I interviewed and examined this patient I agree with the above note. She has passed her bowels and is passing flatus. She denies abdominal pain. She had no nausea or vomiting and has tolerated the diet. Her small bowel obstruction is resolved. I agree with advancing her diet discharging if she tolerates that. Subjective feeling better today no nausea or vomiting had large foul smelling bowel movement this morning and passing gas ready to go home Results & Data Vital Signs (Past 12 Hours) Vital Signs Temp Pulse Resp BP Pulse Ox 02/21/20 07:21 36.9 C 72 16 122/77 97 02/20/20 23:21 36.9 C 71 16 112/70 97 Laboratory Results 02/21/20 02/21/20 Range/Units 05:59 05:59 WBC 7.56 (4.8-10.8) K/uL RBC 4.21 (4.2-5.4) M/uL Hgb 12.7 (12.0-16.0) g/dL Hct 37.1 (37-47) % MCV 88.1 (80-100) fL MCH 30.2 (25-34) pg MCHC 34.2 (32-36) g/dL RDW Std Deviation 43.7 (36.4-46.3) fL RDW Coeff of Maday 13.6 (11.5-14.5) % Plt Count 201 (130-400) K/uL MPV 10.1 (7.4-10.4) fL Immature Gran % (Auto) 0.9 % Neut % (Auto) 62.1 % Lymph % (Auto) 27.9 % [facility] % (Auto) 7.3 % Eos % (Auto) 1.7 % Baso % (Auto) 0.1 % Immature Gran # (Auto) 0.07 H (0.00-0.02) K/uL Neut # (Auto) 4.69 (1.4-6.5) K/uL Lymph # (Auto) 2.11 (1.2-3.4) K/uL [facility] # (Auto) 0.55 (0.11-0.59) K/uL Eos # (Auto) 0.13 (0-0.5) K/uL Baso # (Auto) 0.01 (0-0.2) K/uL Sodium 142 (136-145) mmol/L Potassium 3.9 D (3.5-5.1) mmol/L Chloride 113 H (98-107) mmol/L Carbon Dioxide 22 (21-32) mmol/L Anion Gap 7.0 (3-11) BUN 8 (7-18) mg/dl Creatinine 0.50 L (0.6-1.2) mg/dl Est Cr Clr Drug Dosing 114.4 ml/min Est GFR ( Amer) 133.6 Est GFR (Non-Af Amer) 115.3 BUN/Creatinine Ratio 15.9 (10-20) Glucose 69 L (70-99) mg/dl Calcium 8.0 L (8.5-10.1) mg/dl
--- NOTE | 2020-02-21 12:08 | Discharge Summary ---
Date of Service February 21, 2020 Admission HPI Per Admitting Provider Mrs. Anderson is a 49 yo F with a PMHx of GERD who presented to the ED for progressive periumbilical abdominal pain that began this morning. Prior to the onset of this discomfort, she was in her usual state of health. She experienced associated abdominal bloating and nausea. She dry heaved but had no food in her stomach to bring up. Her appetite was diminished throughout the day, and she did not consume any food. It is difficult for her to gauge if the pain has migrated throughout her abdomen or has remained localized. She denies any diarrhea or urinary symptoms. Mrs. Anderson states that she has never experienced this kind of discomfort in the past. She cannot recall a trigger or inciting event that brought the abdominal pain on. Her past medical history consists only of GERD for which she takes protonix 40mg, daily. She has no history of radiation therapy to the abdomen or inflammatory bowel disorder. Her past surgical history is significant only for a hysterectomy and unilateral oophorectomy. ED course: WBC mildly elevated to 12.4. CMP otherwise WNL. Lipase normal at 71. Urine preg negative. UA unremarkable. CT angiogram of abdomen and pelvis showed dilated loops of bowel with air fluid levels concerning for a small bowel obstruction. There was also mild twisting of the mesentery with a few loops of angular decompressed small bowel which raises the possibility of an internal hernia. High grade stenosis of the celiac trunk noted. Mild splenomegaly and hepatic steatosis also present. Patient was made NPO, started on IV fluids, and given a dose of Toradol and Zofran. Principal Diagnosis SBO Discharge Exam Constitutional WD/WN, vitals as above Respiratory normal respiratory effort, lungs clear to auscultation Cardiovascular RRR, no murmur, no edema Gastrointestinal (Abdomen) Inspection/Auscultation: abdomen normal to inspection and normal bowel sounds; abdomen not distended Percussion/Palpation: abdomen soft; abdomen nontender Musculoskeletal no cyanosis or clubbing, extremities motor strength 5/5 Skin no rashes, warm and dry Neurologic moves all extremities and awake Psychiatric A+Ox3, euthymic affect Discharge Data Allergies Allergy/AdvReac Type Severity Reaction Status Date / Time No Known Allergies Allergy Verified 02/19/20 18:59 Consultations 02/19/20 22:00 ED Decision to Admit Stat 06/08/20 23:42 Consult General Surgery Routine Consult Vascular Surgery Routine Ordered Studies 02/19/20 18:09 CT angio abdomen pelvis w con Stat Hospital Course (1) Abdominal pain: Mrs. Anderson is a 49 yo F with a PMHx of GERD who presented to the ED with periumbilical pain and associated nausea, found to a small bowel obstruction on CTA imaging with concern for possible internal hernia formation and celiac trunk stenosis. Resolved - CTA of A/P showing evidence of SBO with twisting of mesenteric vessels, concerning for internal herniation of bowel and vasculature - general surgery consulted - vascular surgery consulted - treat SBO as below (2) Small bowel obstruction: - only risk factor for SBO includes previous hysterectomy - No s/s of perforation on KUB 02/19. 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 Will follow up with pcp Patient is very adamant that she go home today. As her symptoms have vastly improved with return of bowel function, she can be discharged with follow up with her pcp within a week or so. Total Time Total Time Spent Total Time Spent (In Minutes): greater than 30 minutes Discharge Plan Discharge Items Patient Disposition: Home - Self-Care Reason For Visit: SMALL BOWEL OBSTRUCTION Discharge Diagnosis: Small bowel obstruction Activity: Resume your previous activity Non-emergency contact: Primary Care Provider Call non-emergency contact if: you have any medication questions Follow-up/Referrals: Marsha Guido M.D. [Primary Care Provider] - (Please follow up with your primary care provider in about a week ) Diet: Clear liquid Diet Comment: advance your diet slowly as tolerated Addtl Attending Provider Instructions: (1) Abdominal pain: - CT scan of your abdomen and pelvis showed a small bowel obstruction - general surgery consulted and you were seen by Dr. Wilks and Lashanda Miranda PA-C - vascular surgery consulted and you were seen by Dr. Pathak and Lizbeth Mendoza PA-C - neither surgeon felt that you needed surgery (2) Small bowel obstruction: You can advance your diet slowly from clear liquids to full liquids and then a bland diet (low fat/low fiber) and then resume your normal diet. (3) Stenosis of celiac artery: - visualized on CT angiogram of abdomen and pelvis - vascular surgery consulted and did not feel that any surgical intervention was necessary (6) Hepatic steatosis: As seen on CT Please see attached information on fatty liver (7) Splenomegaly: As seen on CT Follow up outpatient with your primary care provider Pending Studies at Discharge: No Stand-Alone Forms: My [employer], Smoking Cessation Medications and DC Order Prescriptions: Continued pantoprazole 40 mg tablet,delayed release (DR/EC) 40 mg PO DAILY RF: 0 Discharge Orders: Discharge Order (Routine); Ordered 02/21/20 Ordered By: Leilani Mcgee/Other Patient Handouts: Nonalcoholic Fatty Liver Disease NAFLD Admission Data Admit Date/Time: 02/19/20 22:25 Attending Provider: Mike Cartagena Admit Provider: Rayne Suero Primary Care Provider: Marsha Guido Other Providers: Jaxson Wilks ; Bhaskar Pathak ; Mike Cartagena. Coding Level of Care Code D/C Day Management >30 mins Diagnoses Abdominal pain R10.9 Abdominal location: unspecified location Small bowel obstruction K56.609 GERD (gastroesophageal reflux disease) K21.9 Leukocytosis D72.829 Leukocytosis type: unspecified Stenosis of celiac artery I77.4 Splenomegaly R16.1 Hepatic steatosis K76.0
== END 2020-02-21 13:36 | disposition home or self-care (01) | DRG 390 ==
LOC: ED 17:04 → SUATTDRO 22:25 → 3E 22:25